=== PATIENT | male | born 1950 | race Caucasian/White ===

== ENCOUNTER 2016-06-06 12:06 | Day surgery (SDC) | payer OTHER, MEDICARE ==
[2016-05-31 12:10] LABS: BASOPHILS 0.4 %; BASOPHILS ABSOLUTE 0.03 10/3/uL (0.0-0.16); EOSINOPHILS 2.1 %; EOSINOPHILS ABSOLUTE 0.14 10/3/uL (0.0-0.53); HEMATOCRIT 37.1 % (40.0-51.0); HEMOGLOBIN 12.1 g/dL (13.6-17.8); IMMATURE GRANULOCYTES ABSOLUTE 0.07 10/3/uL (0.0-0.11); LYMPHOCYTES 18.1 %; LYMPHOCYTES ABSOLUTE 1.23 10/3/uL (0.67-4.30); MEAN CORPUS HGB CONC 32.6 g/dL (32.0-36.0); MEAN CORPUSCULAR HEMOGLOB 28.4 pg (26.0-34.0); MONOCYTES ABSOLUTE 0.68 10/3/uL (0.21-1.20); NEUTROPHILS 68.4 %; NEUTROPHILS ABSOLUTE 4.64 10/3/uL (2.02-8.40); RBC DISTRIBUTION WIDTH 16.3 % (12.0-16.0); RED CELL COUNT 4.26 10/6/uL (4.7-6.1); WHITE BLOOD CELLS 6.8 10/3/uL (4.5-10.5)
[2016-05-31 12:17] LABS: MANUAL DIFF NO %; MEAN CORPUSCULAR VOLUME 87.1 fL (80-100); PLATELET COUNT 326 10/3/uL (150-400)
[2016-05-31 12:21] LABS: CALCIUM, SERUM 8.9 MG/DL (8.5-10.4); CHLORIDE, SERUM 105 MMOL/L (96-112); CO2 (CARBON DIOXIDE) 32 MMOL/L (24-34); GFR AFRICAN AMERICAN 101 ML/MIN (>=60); GFR NON AFRICAN AMERICAN 87 ML/MIN (>=60); GLUCOSE, SERUM 82 MG/DL (60-99); POTASSIUM, SERUM 3.9 MMOL/L (3.5-5.3); SODIUM, SERUM 142 MMOL/L (135-148)
[2016-05-31 12:23] LABS: BUN (BLOOD UREA NITROGEN) 15 MG/DL (6-23)
[2016-05-31 14:37] LABS: ASCORBIC ACID (UR NOT ORDER) 40 (NEG); BILIRUBIN, URINE NEGATIVE (NEG); KETONE, URINE NEGATIVE (NEG); LEUKOCYTE ESTERASE(NOT OR MOD (NEG); WBC (NOT ORDERED) (RFLEX) 48 (0-5)
--- NOTE | ~2016-06-06 | OP ---
Record Of Operation [facility] [address] [place]. 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 POSTOPERATIVE DIAGNOSIS: Transitional cell carcinoma of the bladder. PROCEDURE: Cystoscopy, bladder biopsies, fulguration of lesions. SURGEON: Brad Joseph M.D. ANESTHESIA: General. SPECIMENS: 1. Posterior bladder wall biopsy. 2. Trigone biopsy. 3. Bladder neck biopsy. DRAINS: None. ESTIMATED BLOOD LOSS: None. COMPLICATIONS: None. DISPOSITION: Extubated to recovery room. HISTORY: This is a 66-year-old gentleman with the above-stated problems, who presents for the above-stated procedure. PROCEDURE IN DETAIL: After consent was obtained, the patient was taken to the operating room and placed on the operative table in a supine position. General anesthetic was induced. The patient was then placed in dorsal lithotomy position. His perineum was prepped and draped in usual sterile fashion. Examination under anesthesia reveals normal external genitalia. Cystourethroscopy was then performed with 30 and 70-degree lens. Both ureteral orifices were seen with [place] stents exiting the ureteral orifice. The areas of previous resection three months ago were noted, but there were fluffy debris, yellow debris above and over these areas of resection. No gross tumors or erythematous velvety patches were noted. The biopsy forceps were placed. The area of debris overlying previous resection were then removed from the posterior bladder wall. These were sent to pathology. The area underneath appeared to be healed, though there were some petechiae which were oozing slightly. Attention was then paid to the trigone, this yellowed and white debris area was then removed with the biopsy forceps. This required several passes of the biopsy forceps, but the entire area was then removed. Several small biopsies of the tissue underneath were removed as well. No specific abnormalities were noted at the underlying tissue. Attention was then paid to the bladder neck from the 1 o'clock to the 4 o'clock position. Some white debris was removed from these areas of previous resection. The areas Record Of Operation [address] [address] NAME: SEDRICK LOYA : 46 [place]US [place] [facility] [place] [id number] AGE: 66 ADM/REG DATE : 06/06/16 MR#: [id number] REPORT SERV DATE: 06/06/16 DICTATED BY: BRAD JOSEPH DATE: 06/06/16 REPORT STATUS : Draft TRANSCRIBED BY: NICOLE DATE: 06/06/16 were then inspected, and small areas of oozing were noted, but no other debris were noted. The bladder was then reinspected. Any bleeding areas were cauterized. The bladder was then inspected again. No gross bleeding was noted. No masses were noted. The bladder was drained. The scope and sheath were removed. The patient was awakened from his anesthetic, extubated, and taken to recovery room in good condition. Plan will be to send him home on levofloxacin 500 mg, #2 to start tomorrow; also ondansetron 4 mg, #10 to use as needed. He is to follow up in three months for cystoscopy, bilateral retrograde pyelograms exchange, bilateral [place] stents, possible bladder biopsies, possible fulguration of lesions. ÁLVARO/NICOLE Brad Joseph M.D. / [id number] CC: Lissett Cardenas
[~2016-06-06 12:06] MED LIST: AZO STANDARD PO; COMP10B PO; D.O.S.100 MG PO; DELTADOSE; DIL4TAB PO; DITRO5 PO; DITROPAN XL15 MG PO; FISH-EPA1000 MG PO; FLOMAX4 PO; GAS-X80 MG PO; HYT2 PO; MEGACEUDL PO; MELA3 PO; MIRALAXPKT PO; MULTI-VIT/F1 PO; MULTIPLE VIT PO; OS500+D PO; OXYCOD PO; PRILO PO; PROAIR HFA INH; PROAIRRESP INH; PROVENTSOL INH; PYR200 PO; SANCTURA20 MG PO; SENTAB PO; SPIRIVA INH; SYMBICORT 160/41 INH INH; T PO; TRENTAL400 PO; VESICARE10 MG PO; VITAMIN D31000 UNIT PO; VITE PO; ZOFRANODT8 PO; ZYRTEC ALLGY10 MG PO
[2016-10-24] MEDS ORDERED: VITAMIN D31000 UNIT PO (10:03)
[2016-12-28] MEDS ORDERED: SYMBICORT 160/41 INH INH (12:12)
[2016-12-28] MEDS ORDERED: SPIRIVA INH (12:12)
[2016-12-28] MEDS ORDERED: SINGULAIR1 PO (12:12)
[2016-12-28] MEDS ORDERED: DITRO5 PO (12:13)
[2016-12-28] MEDS ORDERED: PRILO PO (12:13)
[2016-12-28] MEDS ORDERED: PROVHFA INH (12:13)
[2016-12-28] MEDS ORDERED: SANCTURA20 MG PO (12:14)
[2016-12-28] MEDS ORDERED: MULTIPLE VIT PO (12:15)
[2016-12-28] MEDS ORDERED: FLOMAX4 PO (12:15)
[2016-12-28] MEDS ORDERED: OS500+D PO (12:15)
== END 2016-06-06 23:59 | disposition home or self-care (01) ==
LOC: SDC 12:06
PROVIDERS: Urology
PROC: 0TBB8ZX Excision of Bladder, Via Natural or Artificial Opening Endoscopic, Diagnostic (ICD-10-PCS; principal; 2016-06-06 13:15)
DX: N32.89 Other specified disorders of bladder (principal); J44.9 Chronic obstructive pulmonary disease, unspecified; J45.909 Unspecified asthma, uncomplicated; M19.90 Unspecified osteoarthritis, unspecified site; K52.9 Noninfective gastroenteritis and colitis, unspecified; K21.9 Gastro-esophageal reflux disease without esophagitis; F41.9 Anxiety disorder, unspecified; D64.9 Anemia, unspecified; H91.90 Unspecified hearing loss, unspecified ear; Z88.1 Allergy status to other antibiotic agents; Z79.899 Other long term (current) drug therapy; Z85.51 Personal history of malignant neoplasm of bladder; Z92.21 Personal history of antineoplastic chemotherapy; Z92.3 Personal history of irradiation; Z87.891 Personal history of nicotine dependence; Z99.81 Dependence on supplemental oxygen; Z96.1 Presence of intraocular lens; Z98.41 Cataract extraction status, right eye; Z98.42 Cataract extraction status, left eye; Z98.890 Other specified postprocedural states
CPT/HCPCS: 80048; 81001; 85025; 87086; 88305; 93005; J2405; J3010